=== PATIENT | female | born 1960 | race Caucasian/White ===

== ENCOUNTER → 2024-08-10 07:02 | Outpatient (REF) | payer BC, SELFPAY | LOC: HWRAD 07:02 | PROVIDERS: ATTENDING PHYSICIAN Internal Medicine Medical Oncology; FAMILY PHYSICIAN Nurse Practitioner Adult Health | DX: R76.8 Other specified abnormal immunological findings in serum (principal) | CPT/HCPCS: 76700 ==

== ENCOUNTER → 2025-05-10 09:10 | Outpatient (REF) | payer BC, SELFPAY | LOC: RAD 09:10 | PROVIDERS: ATTENDING PHYSICIAN Nurse Practitioner Adult Health; REFERRING PHYSICIAN Nuclear Medicine Nuclear Cardiology | DX: R23.0 Cyanosis (principal); R09.89 Other specified symptoms and signs involving the circulatory and respiratory systems | CPT/HCPCS: 93922; 93925 ==

== ENCOUNTER 2025-08-26 06:26 | Day surgery (SDC) | payer BC, SELFPAY ==
[2025-08-19 13:22] VITALS: BMI 27.9
[2025-08-26] VITALS (8 sets, daily range): BP systolic 110–123; BP diastolic 50–64; BMI 27.9
[2025-08-26 13:22] LABS: Glucose - Point of Care 66 mg/dl (70-99)
[2025-08-26] MEDS: TYLENOL 1000 MG PO (13:23)
[2025-08-26] MEDS: HEPARIN 5000 UNITS SC (13:23)
[2025-08-26] MEDS: NORMOSOL-R/PLASMALYTE-A 1000 IV (13:24)
[2025-08-26] MEDS: DEXTROSE 50% SYRINGE 12.5 GRAMS IV (13:43)
[2025-08-26 14:09] LABS: Glucose - Point of Care 139 mg/dl (70-99)
--- NOTE | 2025-08-26 15:35 | W.IMMPOSTOP ---
Surgical Immed Post Op Note
-
Primary Surgeon: Tatianna
Pre-op Diagnosis: Right spigelian hernia, incarcerated
Post-op Diagnosis: Same
Procedure Performed: Robot assisted laparoscopic repair of right spigelian hernia, incarcerated (rTAPP)
Anesthesia Type: GETA
Specimen / Cultures: None
Estimated Blood Loss: 15cc
Complications: None immediate
Operative Findings: 3.5x3cm defect with incarcerated omentum, 11cm round bard soft mesh
--- NOTE | 2025-08-26 15:41 | OR.RPT ---
Operative Report
Operative Report
Primary Surgeon: Tatianna
Pre-op Diagnosis: Right spigelian hernia, incarcerated
Post-op Diagnosis: Same
Procedure Performed: Robot assisted laparoscopic repair of right spigelian hernia, incarcerated (rTAPP)
Anesthesia Type: GETA
Specimen / Cultures: None
Estimated Blood Loss: 15cc
Complications: None immediate
Operative Findings: 3.5x3cm defect with incarcerated omentum, 11cm round bard soft mesh
DOS: 08/26/25
Indications:� This 65F developed an incarcerated spigelian hernia of the right lower quadrant. Imaging showed colon involvement. She did a preoperative bowel prep. Robot assisted laparoscopic repair was planned.
Description of procedure:� The patient was taken to the operating room and positioned into supine position. The patient�s abdomen was prepped and draped in standard sterile fashion. A time-out was completed verifying correct patient, procedure,
site, positioning, and implants and special equipment prior to beginning this procedure.� A stab incision was made in the left upper quadrant, a Veress needle was inserted and proper position was confirmed by aspiration and saline drop test.
Following this, pneumoperitoneum was created with insufflation of carbon dioxide to 12 mmHg. Then a 8mm robotic trocar was inserted at the left anterior axillary line. The laparoscope was inserted and no injuries were identified in the area. Under
direct visualization, two 8mm trocars were placed in the epigastrium off midline to the left and in the right midclavicular line at the same level.
Attention was turned to the defect. Omental adhesions to the abdominal wall were taken down. The colon was not encountered among these adhesions. Once cleared of adhesions, the peritoneum was incised several cm superior to the defect and a
peritoneal flap was developed in transverse and caudad directions using blunt and sharp dissection and judicious electrocautery. The defect measured as above. The defect was closed with 0 PDS stratafix suture. Mesh was passed into the abdomen and
centered on the defect and then placed against the underside of the abdominal wall and secured in place with 2-0 vicryl sutures at cardinal points as well as under the defect. The flap was closed over the mesh and secured with 2-0 monocryl stratafix
suture. A 14g angiocath was used to decompress the preperitoneal space and showed the mesh in good position without folding or curling.
After ensuring adequate hemostasis, the trocars were removed and the pneumoperitoneum allowed to escape. The trocar incisions were closed at the skin level using 4-0 monocryl and topical skin adhesive. All counts were correct. The patient tolerated
the procedure well and was taken to the postanesthesia care unit in stable condition.
[2025-08-26 15:49] LABS: Glucose - Point of Care 109 mg/dl (70-99)
== END 2025-08-26 17:28 | disposition home or self-care (01) ==
LOC: SDS 06:26
PROVIDERS: ATTENDING PHYSICIAN Surgery; FAMILY PHYSICIAN Nurse Practitioner Adult Health
DX: K43.6 Other and unspecified ventral hernia with obstruction, without gangrene (principal)
CPT/HCPCS: 49594; 36415; 82962; 93005; C1781

== ENCOUNTER → 2025-10-25 07:13 | Outpatient (REF) | payer BC, SELFPAY | LOC: HWRCS 07:13 | PROVIDERS: ATTENDING PHYSICIAN Nuclear Medicine Nuclear Cardiology; FAMILY PHYSICIAN Nurse Practitioner Adult Health | DX: I34.0 Nonrheumatic mitral (valve) insufficiency (principal); I10 Essential (primary) hypertension; E11.9 Type 2 diabetes mellitus without complications; E78.5 Hyperlipidemia, unspecified | CPT/HCPCS: 93306 ==